=== PATIENT | female | born 2000 | race Two or more races ===

== ENCOUNTER 2024-01-10 13:47 | Emergency (ER) | payer MEDICAID ==
[~2024-01-10] VITALS: Ht 160 cm; Wt 76.0 kg
[2024-01-10 13:49] VITALS: O2SAT 99
[2024-01-10 14:40] LABS: BASOPHILS % 0.3 % (0.0-2.0); EOSINOPHILS % 1.6 % (0.0-5.0); HEMATOCRIT. 33.7 % (36.0-48.0); HEMOGLOBIN. 11.9 g/dL (12.0-16.0); LYMPHOCYTES % 25.4 % (20.0-50.0); MEAN CORPUSCULAR HEMOGLOBIN 29.6 pg (28.0-32.0); MEAN CORPUSCULAR HGB CONC 35.4 g/dL (31.0-37.0); MEAN CORPUSCULAR VOLUME 83.8 fL (81.0-99.0); MEAN PLATELET VOLUME 8.3 fl (7.4-10.4); MONOCYTES % 9.2 % (2.0-8.0); NEUTROPHILS % 63.5 % (40.0-76.0); PLATELET 264 x1000/uL (130-400); RED BLOOD CELL COUNT 4.02 mill/uL (4.2-5.4); RED CELL DISTRIBUTION WIDTH 13.4 % (11.6-14.6); WHITE BLOOD COUNT 9.5 x1000/uL (4.5-11.0)
[2024-01-10 14:47] LABS: CHLORIDE 107 mEq/L (98-107); POTASSIUM 3.8 mEq/L (3.5-5.1); SODIUM 138 mEq/L (136-145)
[2024-01-10 14:48] LABS: CALCIUM 9.1 mg/dL (8.7-10.4); CARBON DIOXIDE 23 mEq/L (21-32)
[2024-01-10 14:52] LABS: INR 0.9; PROTHROMBIN TIME 10.1 sec (9.6-11.0)
[2024-01-10 14:53] LABS: CREATININE 0.4 mg/dL (0.6-1.0); GLUCOSE 82 mg/dL (70-105)
[2024-01-10 14:55] LABS: UREA NITROGEN BLOOD < 5 mg/dL (9-23)
[2024-01-10 15:08] LABS: CLARITY URINE CLEAR (CLEAR); COLOR URINE YELLOW (YELLOW); GLUCOSE URINE NEGATIVE (NEGATIVE); KETONES URINE NEGATIVE (NEGATIVE); LEUKOCYTE ESTERASE URINE TRACE (NEGATIVE); NITRITE URINE NEGATIVE (NEGATIVE); OCCULT BLOOD URINE NEGATIVE (NEGATIVE); PH URINE 5.5 (4.5-8.0); PROTEIN URINE NEGATIVE (NEGATIVE); SPECIFIC GRAVITY URINE 1.016 (1.005-1.030); UROBILINOGEN URINE 0.2 E.U./dL (0.2-1.0)
[2024-01-10 15:10] LABS: HEPATITIS B SURFACE ANTIGEN NEGATIVE (Negative)
[2024-01-10 15:30] LABS: RBC URINE 0-2 /hpf (0-2); SQUAMOUS EPITHELIAL CELL URINE 1+ /lpf (RARE/1+)
[2024-01-10 15:31] LABS: HEPATITIS A AB IGM NEGATIVE (Negative); HEPATITIS B CORE AB IGM NEGATIVE (Negative)
[2024-01-10 15:31] LABS: BACTERIA URINE 1+
[2024-01-10 15:32] LABS: HEPATITIS C AB NON REACTIVE (Neg) (Negative)
[2024-01-10 16:19] LABS: ALANINE AMINOTRANSFERASE 17 IU/L (10-49)
[2024-01-10 16:20] LABS: ALBUMIN 3.9 g/dL (3.2-4.8); ASPARTATE AMINOTRANSFERASE 18 IU/L (<34); BILIRUBIN TOTAL 0.3 mg/dL (0.1-1.0); PROTEIN TOTAL 6.2 g/dL (6.0-8.3)
[2024-01-10 16:21] LABS: BILIRUBIN DIRECT < 0.1 mg/dL (<=3.0)
[2024-01-10] MEDS: SODIUM CHLORIDE 0.9% 1,000 ML IV ONE (16:36)
[2024-01-10] MEDS: LOPERAMIDE HCL 2MG CAPSULE PO ONE (17:01)
[2024-01-10 18:00] VITALS: BP 110/64; PULSE 78; RESP 16
== END 2024-01-10 18:07 | disposition home or self-care (01) ==
LOC: ER 13:47
DX: O26.892 Other specified pregnancy related conditions, second trimester (principal); R19.7 Diarrhea, unspecified; Z90.49 Acquired absence of other specified parts of digestive tract; Z3A.26 26 weeks gestation of pregnancy
CPT/HCPCS: 87177; 87209; 80076; 80048; 81003; 83690; 85025; 85610; 87340; 87045; 87427 ×2; 87015; 87086; 87493; 36415; 86705; 86709; 87449; 76815; 96360; 99284; J7030; Z7610